=== PATIENT | male | born 1960 | race Caucasian/White ===

== ENCOUNTER 2017-07-03 20:48 | Inpatient (IN) | payer OTHER ==
[~2017-07-03] VITALS: Ht 170.2 cm; Wt 83.7 kg
[2017-07-03 21:12] VITALS: BP 183/89; PULSE 61; RESP 18; TEMP 97.9; O2SAT 99
[2017-07-03 21:24] VITALS: BP 180/88; PULSE 64; RESP 18; O2SAT 100
[2017-07-03 21:25] VITALS: BP 166/80; PULSE 64; RESP 18; O2SAT 100
[2017-07-03 21:41] VITALS: BP_SYST 166; BP_SYST 180; BP_DIAS 64; BP_DIAS 88; PULSE 66; RESP 18; O2SAT 100
--- NOTE | 2017-07-03 21:44 | PD ---
HPI Chief Complaint: Chest Pain Time Seen by Provider: 21:23 Travel History International Travel<30 days: No Contact w/Intl Traveler<30days: No Traveled to known affect area: No History of Present Illness HPI Patient presents to the emergency department complaining of chest pain started approximately 1 hour ago. Denies chest pain now. Similar pain approximately 1 month ago. He saw his doctor today and was told that he needed follow-up with dealer sales rep and to come to the ER if pain recurs., The doctor visit he had no chest pain however he was walking his dog the pain recurred and he came to the emergency department. Pain is alleviated with rest, aggravated by movement, diffuse, burning sensation, 30 minutes in duration, nonradiating. He did not take any medication for the pain. He denies fever, vomiting, lower extremity edema, recent travel reports chills, nausea, shortness of breath or chest pain PFSH Past Medical History Arthritis: Yes Asthma: Yes High Cholesterol: Yes Diminished Hearing: No Hypertension: Yes (TAKEN OFF MEDS) Immunizations Current: Yes Past Surgical History Other Surgery: Yes Social History Alcohol Use: Yes Tobacco Use: No Substance Use: No Allergies-Medications (Allergen,Severity, Reaction): Coded Allergies: peanut (Verified Allergy, Severe, 07/03/17) Reported Meds & Prescriptions Reported Meds & Active Scripts Active Reported Atorvastatin (Atorvastatin Calcium) 20 Mg Tab 20 Mg PO HS Aspirin 81 Mg Chew 81 Mg CHEW DAILY Humira 2-Pack Inj (Adalimumab 2-Pack Inj) 10 Mg/0.2 Ml Syr 10 Mg SQ Q14D Review of Systems Except as stated in HPI: all other systems reviewed are Neg Physical Exam Narrative GENERAL: No acute distress. SKIN: Focused skin assessment warm/dry. HEAD: Atraumatic. Normocephalic. EYES: Ocular muscles intact bilaterally. No scleral icterus. No injection or drainage. ENT: No nasal bleeding or discharge. Mucous membranes pink and moist. NECK: Trachea midline. No JVD. CARDIOVASCULAR: Regular rate and rhythm. No murmur appreciated. RESPIRATORY: No accessory muscle use. Clear to auscultation. Breath sounds equal bilaterally. GASTROINTESTINAL: Abdomen soft, non-tender, nondistended. MUSCULOSKELETAL: No obvious deformities. No clubbing. No cyanosis. No edema. NEUROLOGICAL: Awake and alert. No obvious cranial nerve deficits. Motor grossly within normal limits. Normal speech. PSYCHIATRIC: Appropriate mood and affect; insight and judgment normal. Data Data Last Documented VS Vital Signs Date Time Temp Pulse Resp B/P (MAP) Pulse Ox O2 Delivery O2 Flow Rate FiO2 07/03/17 21:47 99 Room Air 07/03/17 21:41 66 18 07/03/17 21:12 97.9 Orders Orders Electrocardiogram (07/03/17 21:33) B-Type Natriuretic Peptide (07/03/17 21:33) Ckmb (Isoenzyme) Profile (07/03/17 21:33) Complete Blood Count With Diff (07/03/17 21:33) Comprehensive Metabolic Panel (07/03/17 21:33) Magnesium (Mg) (07/03/17 21:33) Prothrombin Time / Inr (Pt) (07/03/17 21:33) Act Partial Throm Time (Ptt) (07/03/17 21:33) Troponin I (07/03/17 21:33) Chest, Single Ap (07/03/17 21:33) Ecg Monitoring (07/03/17 21:33) Bilateral Bp Monitoring (07/03/17 21:33) Iv Access Insert/Monitor (07/03/17 21:33) Oximetry (07/03/17 21:33) Aspirin (Aspirin) (07/03/17 21:45) Sodium Chloride 0.9% Flush (Ns Flush) (07/03/17 21:45) Consult Cardiology (07/03/17 ) (Hub Use Only)Inp Phy Cons/Ref (07/03/17 ) CKMB (07/03/17 21:35) CKMB% (07/03/17 21:35) Carvedilol (Coreg) (07/03/17 22:45) Enoxaparin Inj (Lovenox Inj) (07/03/17 22:45) Admit Order (Ed Use Only) (07/03/17 22:39) Labs Laboratory Tests Test 07/03/17 21:35 White Blood Count 8.6 TH/MM3 Red Blood Count 4.33 MIL/MM3 Hemoglobin 13.6 GM/DL Hematocrit 38.7 % Mean Corpuscular Volume 89.5 FL Mean Corpuscular Hemoglobin 31.4 PG Mean Corpuscular Hemoglobin Concent 35.1 % Red Cell Distribution Width 14.0 % Platelet Count 300 TH/MM3 Mean Platelet Volume 8.2 FL Neutrophils (%) (Auto) 48.4 % Lymphocytes (%) (Auto) 36.8 % Monocytes (%) (Auto) 9.3 % Eosinophils (%) (Auto) 4.2 % Basophils (%) (Auto) 1.3 % Neutrophils # (Auto) 4.2 TH/MM3 Lymphocytes # (Auto) 3.2 TH/MM3 Monocytes # (Auto) 0.8 TH/MM3 Eosinophils # (Auto) 0.4 TH/MM3 Basophils # (Auto) 0.1 TH/MM3 CBC Comment DIFF FINAL Differential Comment Prothrombin Time 9.7 SEC Prothromb Time International Ratio 1.0 RATIO Activated Partial Thromboplast Time 26.3 SEC Blood Urea Nitrogen 22 MG/DL Creatinine 1.34 MG/DL Random Glucose 97 MG/DL Total Protein 7.4 GM/DL Albumin 3.7 GM/DL Calcium Level 9.3 MG/DL Magnesium Level 1.9 MG/DL Alkaline Phosphatase 69 U/L Aspartate Amino Transf (AST/SGOT) 26 U/L Alanine Aminotransferase (ALT/SGPT) 37 U/L Total Bilirubin 0.3 MG/DL Sodium Level 138 MEQ/L Potassium Level 3.7 MEQ/L Chloride Level 106 MEQ/L Carbon Dioxide Level 23.9 MEQ/L Anion Gap 8 MEQ/L Estimat Glomerular Filtration Rate 55 ML/MIN Total Creatine Kinase 184 U/L Creatine Kinase MB 1.5 NG/ML Troponin I 0.63 NG/ML B-Type Natriuretic Peptide 37 PG/ML MDM Medical Decision Making Medical Screen Exam Complete: Yes Emergency Medical Condition: Yes Interpretation(s) EKG: Sinus bradycardia at 58, normal intervals, normal axis, T-wave inversion in lead aVL/V1/V2 also has slight ST elevation in inferior leads with T-wave amplitude approaching QRS amplitude. Labs: Troponin elevated, creatinine slightly increased Last Impressions Chest X-Ray 07/03/17 8650 Signed Impressions: Service Date/Time: Monday, July 03, 2017 21:46 - CONCLUSION: No acute disease. Kulwant Silvestre MD Differential Diagnosis ACS, STEMI, PE, musculoskeletal chest pain, aortic dissection, costochondritis Narrative Course Patient presents to the emergency department with chest pain that is worse with movement and alleviated with rest. He is afebrile, slightly hypertensive at 166 /80, remained vital signs stable. No focal physical exam findings. Will get chest pain rule out labs given aspirin 325 mg p.o. Patient has some slight ST elevation in inferior leads and T-wave inversion in aVL, will recheck out to the on-call dealer sales rep to discuss EKG. Physician Communication Physician Communication [id number]: Discussed case with Dr Braun, Cards cotton ball bagger.ECG sent to him. Advised to admit patient, place consult to him, lovenox if no contraindications/NTG/B hilaria, admit to hospitalist and NPO after MN. 2241: Admitted to hospitalist.Advised to hold NTG as patient is cp free. She will write for it on admission orders if needed. Wanted me to give coreg 3.125mg for the beta hilaria. Also advised ok to give lovenox with slight bump in creatinine. Diagnosis Primary Impression: NSTEMI (non-ST elevated myocardial infarction) Admitting Information Admitting Physician Requests: Admit Condition: Stable Sherry Borden MD July 03, 2017 21:44
[2017-07-03] MEDS ORDERED: SODIUM CHLORIDE 0.9% FLUSH 10 ML FLUSH IVF PRN (21:45)
[2017-07-03] MEDS ORDERED: ASPIRIN 325 MG TAB PO ONE (21:45)
[2017-07-03] MEDS ORDERED: ASPI-516 CHEW (21:45)
[2017-07-03] MEDS ORDERED: ADAL1INJ SQ (21:45)
[2017-07-03 21:47] VITALS: O2SAT 99
[2017-07-03] MEDS ORDERED: ATOR10TA15 PO (21:47)
[2017-07-03] MEDS ORDERED: ATOR20TA15 PO (21:48)
[2017-07-03 21:56] LABS: AUTOMATED NEUTROPHIL # 4.2 TH/MM3 (1.8-7.7); BASOPHIL # 0.1 TH/MM3 (0-0.2); BASOPHIL % 1.3 % (0.0-2.0); EOSINOPHIL # 0.4 TH/MM3 (0-0.4); EOSINOPHIL % 4.2 % (0.0-4.0); HEMATOCRIT 38.7 % (39.0-51.0); HEMOGLOBIN 13.6 GM/DL (13.0-17.0); LYMPH % 36.8 % (9.0-44.0); LYMPHOCYTE # 3.2 TH/MM3 (1.0-4.8); MEAN CELL VOLUME 89.5 FL (80.0-100.0); MEAN CORPUSCULAR HEMOGLOBIN 31.4 PG (27.0-34.0); MEAN CORPUSCULAR HGB CONC 35.1 % (32.0-36.0); MEAN PLATELET VOLUME 8.2 FL (7.0-11.0); MONO % 9.3 % (0.0-8.0); MONOCYTE # 0.8 TH/MM3 (0-0.9); NEUT % 48.4 % (16.0-70.0); PLATELET COUNT 300 TH/MM3 (150-450); RED BLOOD COUNT 4.33 MIL/MM3 (4.50-5.90); WHITE BLOOD COUNT 8.6 TH/MM3 (4.0-11.0)
[2017-07-03 22:06] LABS: PROTHROMBIN TIME - PATIENT 9.7 SEC (9.8-11.6)
--- NOTE | 2017-07-03 22:12 | RADRPT ---
EXAM DATE/TIME: 07/03/2017 21:46 [facility] COMPARISON: No previous studies available for comparison. INDICATIONS : Chest pain and shortness of breath. MEDICAL HISTORY : Hypercholesterolemia. Hypertension Chronic obstructive pulmonary disease. Asthma, Arthritis. SURGICAL HISTORY : Right arm surgery. ENCOUNTER: Initial ACUITY: 1 day PAIN SCORE: 10/10 LOCATION: Bilateral chest FINDINGS: A single view of the chest demonstrates the lungs to be symmetrically aerated without evidence of mas s, infiltrate or effusion. The cardiomediastinal contours are unremarkable. Osseous structures are intact. CONCLUSION: No acute disease. Kulwant Silvestre MD on July 03, 2017 at 22:10 Board Certified Radiologist. This report was verified electronically.
[2017-07-03 22:16] LABS: ALBUMIN 3.7 GM/DL (3.4-5.0); AST (GOT) 26 U/L (15-37); BICARBONATE 23.9 MEQ/L (21.0-32.0); BLOOD UREA NITROGEN 22 MG/DL (7-18); CALCIUM 9.3 MG/DL (8.5-10.1); CHLORIDE 106 MEQ/L (98-107); CREATININE 1.34 MG/DL (0.60-1.30); GLOMERULAR FILTRATION RATE 55 ML/MIN (>89); GLUCOSE,RANDOM 97 MG/DL (74-106); MAGNESIUM 1.9 MG/DL (1.5-2.5); SODIUM (NA) 138 MEQ/L (136-145)
[2017-07-03 22:21] LABS: ALKALINE PHOSPHATASE 69 U/L (45-117); ALT (GPT) 37 U/L (12-78); TOTAL BILIRUBIN ADULT 0.3 MG/DL (0.2-1.0); TOTAL PROTEIN 7.4 GM/DL (6.4-8.2)
[2017-07-03 22:29] LABS: TROPONIN I 0.63 NG/ML (0.02-0.05)
[2017-07-03] MEDS ORDERED: CARVEDILOL 3.125 MG TAB PO ONE (22:45)
[2017-07-03] MEDS ORDERED: ENOXAPARIN SODIUM 100 MG/ML SYRINGE SQ ONE (22:45)
[2017-07-03] MEDS ORDERED: SODIUM CHLORIDE 0.9% FLUSH 10 ML FLUSH IV FLUSH PRN (23:45)
[2017-07-04] VITALS (16 sets, daily range): BP systolic 114–189; BP diastolic 56–84; PULSE 48–67; RESP 16; TEMP 97.8–98.2; O2SAT 96–99
[2017-07-04] MEDS ORDERED: MORPHINE SULFATE 4 MG/ML INJ IV PUSH PRN
[2017-07-04] MEDS ORDERED: ATORVASTATIN 20 MG TAB PO SCH
--- NOTE | 2017-07-04 00:11 | HHI.HP ---
[facility] Rinku Mcconnell MD Admission Diagnosis ACS/NSTEMI Diagnoses: Travel History International Travel<30 Days: No Contact w/Intl Traveler <30 Da: No Traveled to Known Affected Are: No History of Present Illness 56-year-old male with a past medical history significant for hyperlipidemia and psoriatic arthritis presents to the emergency department for evaluation of chest pain/pressure. The patient reports that starting at 8 PM last night he had a chest tightness/pressure with accompanying shortness of breath that lasted approximately 45 minutes. He endorses nausea without emesis. He states the pain was relieved on its own on his arrival to the emergency department. He denies any abdominal pain or diarrhea. No fevers/chills. No fatigue or weakness. No lateralizing signs/symptoms. Review of Systems Except as stated in HPI: all other systems reviewed are Neg Past Family Social History Past Medical History Hyperlipidemia Psoriatic arthritis Past Surgical History Discectomy Reported Medications Reported Meds & Active Scripts Active Reported Atorvastatin (Atorvastatin Calcium) 20 Mg Tab 20 Mg PO HS Aspirin 81 Mg Chew 81 Mg CHEW DAILY Humira 2-Pack Inj (Adalimumab 2-Pack Inj) 10 Mg/0.2 Ml Syr 10 Mg SQ Q14D Allergies: Coded Allergies: peanut (Verified Allergy, Severe, 07/03/17) Family History Father with CAD Social History Quit smoking 4 years ago. Rare alcohol. Denies illicit drugs. Physical Exam Vital Signs Vital Signs Date Time Temp Pulse Resp B/P (MAP) Pulse Ox O2 Delivery O2 Flow Rate FiO2 07/03/17 21:47 99 Room Air 07/03/17 21:41 66 18 180/88 (118) 100 Room Air 07/03/17 21:41 66 18 166/64 (98) 100 Room Air 07/03/17 21:25 64 18 166/80 (108) 100 Room Air 07/03/17 21:24 64 18 180/88 (118) 100 Room Air 07/03/17 21:12 97.9 61 18 183/89 (120) 99 Physical Exam GENERAL: male sitting up in bed SKIN: No rashes, ecchymoses or lesions. Cool and dry. HEAD: Atraumatic. Normocephalic. No temporal or scalp tenderness. EYES: Pupils equal round and reactive. Extraocular motions intact. No scleral icterus. No injection or drainage. ENT: Nose without bleeding, purulent drainage or septal hematoma. Throat without erythema, tonsillar hypertrophy or exudate. Uvula midline. Airway patent. NECK: Trachea midline. No JVD or lymphadenopathy. Supple, nontender, no meningeal signs. CARDIOVASCULAR: Regular rate and rhythm without murmurs, gallops, or rubs. RESPIRATORY: Clear to auscultation. Breath sounds equal bilaterally. No wheezes , rales, or rhonchi. GASTROINTESTINAL: Abdomen soft, non-tender, nondistended. No hepato-splenomegaly , or palpable masses. No guarding. MUSCULOSKELETAL: Extremities without clubbing, cyanosis, or edema. No joint tenderness, effusion, or edema noted. No calf tenderness. NEUROLOGICAL: Awake and alert. Cranial nerves II through XII intact. Motor and sensory grossly within normal limits. Normal speech. Laboratory Laboratory Tests Test 07/03/17 21:35 White Blood Count 8.6 Red Blood Count 4.33 Hemoglobin 13.6 Hematocrit 38.7 Mean Corpuscular Volume 89.5 Mean Corpuscular Hemoglobin 31.4 Mean Corpuscular Hemoglobin Concent 35.1 Red Cell Distribution Width 14.0 Platelet Count 300 Mean Platelet Volume 8.2 Neutrophils (%) (Auto) 48.4 Lymphocytes (%) (Auto) 36.8 Monocytes (%) (Auto) 9.3 Eosinophils (%) (Auto) 4.2 Basophils (%) (Auto) 1.3 Neutrophils # (Auto) 4.2 Lymphocytes # (Auto) 3.2 Monocytes # (Auto) 0.8 Eosinophils # (Auto) 0.4 Basophils # (Auto) 0.1 CBC Comment DIFF FINAL Differential Comment Prothrombin Time 9.7 Prothromb Time International Ratio 1.0 Activated Partial Thromboplast Time 26.3 Blood Urea Nitrogen 22 Creatinine 1.34 Random Glucose 97 Total Protein 7.4 Albumin 3.7 Calcium Level 9.3 Magnesium Level 1.9 Alkaline Phosphatase 69 Aspartate Amino Transf (AST/SGOT) 26 Alanine Aminotransferase (ALT/SGPT) 37 Total Bilirubin 0.3 Sodium Level 138 Potassium Level 3.7 Chloride Level 106 Carbon Dioxide Level 23.9 Anion Gap 8 Estimat Glomerular Filtration Rate 55 Total Creatine Kinase 184 Creatine Kinase MB 1.5 Troponin I 0.63 B-Type Natriuretic Peptide 37 Result Diagram: 07/03/17213407/03/172134 Caprini VTE Risk Assessment Caprini VTE Risk Assessment: No/Low Risk (score <= 1) Caprini Risk Assessment Model Point Value = 1 Point Value = 2 Point Value = 3 Point Value = 5 Age 41-60 Minor surgery BMI > 25 kg/m2 Swollen legs Varicose veins or History of unexplained or recurrent spontaneous Oral contraceptives or hormone replacement Sepsis (< 1 month) Serious lung disease, including pneumonia (< 1 month) Abnormal pulmonary function Acute myocardial infarction Congestive heart failure (< 1 month) History of inflammatory bowel disease Medical patient at bed rest Age 61-74 Arthroscopic surgery Major open surgery (> 45 min) Laparoscopic surgery (> 45 min) Malignancy Confined to bed (> 72 hours) Immobilizing plaster cast Central venous access Age >= 75 History of VTE Family history of VTE Factor V Leiden Prothrombin [id number] Lupus anticoagulant Anticardiolipin antibodies Elevated serum homocysteine Heparin-induced thrombocytopenia Other congenital or acquired thrombophilia Stroke (< 1 month) Elective arthroplasty Hip, pelvis, or leg fracture Acute spinal cord injury (< 1 month) Prophylaxis Regimen Total Risk Factor Score Risk Level Prophylaxis Regimen 0-1 Low Early ambulation 2 Moderate Order ONE of the following: *Sequential Compression Device (SCD) *Heparin 5000 units SQ BID 3-4 Higher Order ONE of the following medications: *Heparin 5000 units SQ TID *Enoxaparin/Lovenox 40 mg SQ daily (WT < 150 kg, CrCl > 30 mL/min) *Enoxaparin/Lovenox 30 mg SQ daily (WT < 150 kg, CrCl > 10-29 mL/min) *Enoxaparin/Lovenox 30 mg SQ BID (WT < 150 kg, CrCl > 30 mL/min) AND/OR *Sequential Compression Device (SCD) 5 or more Highest Order ONE of the following medications: *Heparin 5000 units SQ TID (Preferred with Epidurals) *Enoxaparin/Lovenox 40 mg SQ daily (WT < 150 kg, CrCl > 30 mL/min) *Enoxaparin/Lovenox 30 mg SQ daily (WT < 150 kg, CrCl > 10-29 mL/min) *Enoxaparin/Lovenox 30 mg SQ BID (WT < 150 kg, CrCl > 30 mL/min) AND *Sequential Compression Device (SCD) Assessment and Plan Assessment and Plan Assessment/plan: 1. NSTEMI Initial troponin 0 0.63 EKG showed sinus bradycardia with T-wave inversion and possible ST elevation in the inferior leads, personally reviewed Cardiology consulted, appreciate recommendations ACS rule out pending; serial troponins/EKGs Therapeutic Lovenox per cardiology Coreg Aspirin 2. Hyperlipidemia Continue home statin 3. Psoriatic arthritis On Humira 4. HPI Creatinine 1.34, baseline unknown IV fluid hydration Monitor renal function FEN N.p.o. NS at 100 cc/hour Electrolytes: Replete as needed Lovenox Physician Certification 2 Midnight Certification Type: Admission for Inpatient Services Order for Inpatient Services The services are ordered in accordance with Medicare regulations or non- Medicare payer requirements, as applicable. In the case of services not specified as inpatient-only, they are appropriately provided as inpatient services in accordance with the 2-midnight benchmark. Estimated LOS (days): 2 2 days is the estimated time the patient will need to remain in the hospital, assuming treatment plan goals are met and no additional complications. Post-Hospital Plan: Not yet determined Raegan Kern MD July 04, 2017 00:11
[2017-07-04] MEDS ORDERED: SODIUM CHLOR 0.9% 1000 ML INJ 1,000 ML IV SCH (00:15)
[2017-07-04 04:06] LABS: AUTOMATED NEUTROPHIL # 4.7 TH/MM3 (1.8-7.7); BASOPHIL # 0.1 TH/MM3 (0-0.2); BASOPHIL % 0.8 % (0.0-2.0); EOSINOPHIL # 0.3 TH/MM3 (0-0.4); EOSINOPHIL % 3.3 % (0.0-4.0); HEMATOCRIT 37.2 % (39.0-51.0); LYMPH % 30.1 % (9.0-44.0); LYMPHOCYTE # 2.4 TH/MM3 (1.0-4.8); MEAN CELL VOLUME 89.3 FL (80.0-100.0); MEAN CORPUSCULAR HEMOGLOBIN 31.1 PG (27.0-34.0); MEAN CORPUSCULAR HGB CONC 34.9 % (32.0-36.0); MEAN PLATELET VOLUME 8.3 FL (7.0-11.0); MONO % 6.5 % (0.0-8.0); MONOCYTE # 0.5 TH/MM3 (0-0.9); NEUT % 59.3 % (16.0-70.0); PLATELET COUNT 298 TH/MM3 (150-450); RED BLOOD COUNT 4.16 MIL/MM3 (4.50-5.90); RED CELL DISTRIBUTION WIDTH 14.1 % (11.6-17.2)
[2017-07-04 04:24] LABS: BICARBONATE 24.8 MEQ/L (21.0-32.0); CALCIUM 9.1 MG/DL (8.5-10.1); CREATININE 1.11 MG/DL (0.60-1.30)
[2017-07-04 04:27] LABS: CHOLESTEROL/ HDL RATIO 3.82 RATIO
[2017-07-04 06:23] LABS: TROPONIN I 0.59 NG/ML (0.02-0.05)
[2017-07-04] MEDS: CARVEDILOL 3.125 MG TAB PO SCH ×2 (08:51→21:32)
[2017-07-04] MEDS ORDERED: MIDAZOLAM HCL 2 MG/2 ML VIAL ONE ×2 (08:52→09:15)
[2017-07-04] MEDS: SODIUM CHLORIDE 0.9% FLUSH 10 ML FLUSH IV FLUSH SCH ×3 (08:52→21:33)
[2017-07-04] MEDS ORDERED: HEPARIN-NS/PF FLUSH BAG 2,000 ML IV FLUSH ONE (08:52)
[2017-07-04] MEDS ORDERED: ASPIRIN 325 MG TAB PO SCH (09:00)
--- NOTE | 2017-07-04 09:14 | MB ---
cc: Dung Braun MD DATE: 07/04/2017 HISTORY: Pino is a very pleasant 56-year-old gentleman who has been having chest pain for about three weeks now. First noticed it while riding the elliptical at the gym. He then went to his primary care doctor and complained of the chest pain. He was referred to a chin strap sewer, but did not go to the appointment yet. He saw his primary doctor yesterday. He was having resting chest pain. He was referred to the emergency room for further evaluation and management and found to have elevated troponin. Chest pain was controlled with aspirin, Lovenox, nitro, and beta hilaria. He is currently resting comfortably in no acute distress. Denies any fever, chills, cough, GI/ bleeding, pain, orthopnea, syncope or dizziness. PAST MEDICAL HISTORY: As per history of present illness. PAST MEDICAL HISTORY: Includes asthma, arthritis, hyperlipidemia, and hypertension. SOCIAL HISTORY: Drinks alcohol, denies tobacco use. ALLERGIES: PEANUTS. MEDICATIONS PRIOR TO ADMISSION: 1. Atorvastatin 20 mg at bedtime. 2. Aspirin 81 mg a day. 3. Humira 2 pack. MEDICATIONS IN THE HOSPITAL: 1. Lovenox 90 mg sub-Q q. 12 h. 2. Coreg 3.125 q. 12 h. hours. 3. Aspirin 325 daily. 4. Atorvastatin 20 mg at bedtime. PHYSICAL EXAMINATION: VITAL SIGNS: Blood pressure 142/67, pulse 55, respiratory rate 16, temperature 97.9, sats 100% on room air. GENERAL: He is alert and oriented x 3, in no acute distress. NECK: Supple. No JVD. No bruit. HEART: S1, S2. No murmurs, rubs, or gallops. LUNGS: Clear to auscultation bilaterally. ABDOMEN: Soft, nontender, nondistended with positive bowel sounds. EXTREMITIES: Lower extremity edema. LABORATORY DATA: White count 8.0, hemoglobin 13.0, hematocrit 37.2, platelet count 298. INR 1.0. Sodium 141, potassium 3.9, chloride 109, bicarbonate 24.8, BUN 19, creatinine 1.11. Troponin is 0.63, followed by 0.59. The LDL was 103, HDL is 45, AST 26, ALT 37. INR is 1.0. Chest x-ray, no acute disease. EKG shows sinus bradycardia at 58 beats per minute, T-wave inversion, slightly asymmetric in V1, V2. A repeat EKG shows sinus bradycardia at 51 beats per minute, asymmetric T-wave inversion in V1 and V2, approximately 0.5 mm of depth. He has the following diagnoses: 1. Non-ST elevation myocardial infarction. 2. Sinus bradycardia. 3. Acute renal failure. DISCUSSION: A left heart catheterization is urgently indicated due to non-STEMI. I have explained to the patient the risks and benefits of catheterization and PCI has a 5-10% chance of , stroke, heart attack, bleeding, infection, need for bypass surgery, dialysis blood transfusion, anaphylaxis and arrhythmia, bleeding, and infection. The patient understands and consents to proceed with the procedure. Continue aspirin, Coreg, Lipitor and Lovenox. MD JOHANNY Hassan/CHRISTINA , 08:49 AM , 09:13 AM
[2017-07-04] MEDS ORDERED: TIROFIBAN INFUSION INJ 250 ML IV ONE (09:46)
[2017-07-04] MEDS ORDERED: PRASUGREL 10 MG TAB ONE (09:46)
--- NOTE | 2017-07-04 10:10 | CATHPROC ---
Ansira HIS Report Study Information Study Number Admission Scheduled Start Study Start [id number] Jul 03 2017 10:41PM 07/04/2017 Jul 04 2017 8:24AM [facility] Cardiac Catheterization Admit Source Facility Department Emergency department [facility] [address] - Nurse Auditor Physician and Clinical Staff Initial Dung Robles Corporate Travel Coordinator Mason Gonzalez,MILY Corporate Travel Coordinator Joelle Mendoza,MILY Recorder Vargas Marquez,RT(R) Jailene Jaffe,RT(R) (BS) Procedures Performed Procedure Location (Site) Vessel Name Coronary Angiograms LCA Left Coronary Coronary Angiograms RCA Right Coronary LV Gram-hand inj. LV LV Ventricle PTCA DIAG1 Prox Left Coronary PTCA ADD ON'S Stent LAD Mid Left Coronary Wire insertion Fem Art (right) Femoral Art Equipment Time [place] Roofer Description Size Mfg Part Number Used/Scraped [id number] 09:18 [employer] WIRE, ASAHI PROWATER 180CM 180CM Used *[id number] 09:18 [employer] WIRE, ASAHI PROWATER 180CM 180CM Used *[id number] 09:24 [employer] WIRE, ASAHI PROWATER 180CM 180CM Used *[id number] 09:40 [employer] WIRE, ASAHI PROWATER 180CM 180CM Used *[id number] TRANSDUCER, TRUWAVE [id number] 09:02 [employer] * Used W/STOCKCOCK *[id number] [id number] *[id number] [id number] *[phone] *[id number] 09:02 MEDLINE [employer] PACK, CCL CUSTOM * Used *[id number] 09:02 [employer] PACER PEN, SKIN DUAL W/ RULER * Used *[id number] 09:27 MEDTRONIC BALLOON, 2.5 X 6MM EUPHORA 6MM Used *[id number] 09:41 MED[employer] STENT, 3.0 12 INTEGRITY 3.0 12 Used *[id number] 09:32 [employer] STENT, 3.5 9 INTEGRITY 3.5 9 Used *[id number] 09:15 [employer]i MEDICAL 30 LIEN INDEFLATOR Used *[id number] 09:15 Nexi MEDICAL SHEATH, FR6.5 PRELUDE 11CM FR 6.5 038ACT Used *[id number] 09:02 [employer] MEDICAL WIRE, 3MMJ .035 180CM 180CM Used *[id number] 09:02 NAMIC MANIFOLD, 4 PORT * Used *[id number] 09:02 NYCOMED OMNIPAQUE, 350 MG, 150ML 150ML [id number] Used [id number] 09:02 [employer]UNSON [employer] BLANKET,WARM AIR CCL * Used *[id number] 09:02 TERUMO MEDICAL SHEATH, FR4 TERUMO (10CM) FR 4 Used *[id number] Equipment Model, Serial, Lot Number and Expiration Data Description Model Number Serial Number Lot Number Expiration Date STENT, 3.0 12 INTEGRITY [id number] 11-23-2018 STENT, 3.5 9 INTEGRITY [id number] 10-31-2017 History: Allergies Allergy Reaction peanut History: Risk Factors Family History of Hypertension Dyslipidemia Previous [place] Previous Heart Failure Premature CAD No Yes No No No Prior Valve Prior PCI Prior CABG Surgery No No No Cerebrovascular Peripheral Artery Chronic Lung On Dialysis Diabetes Disease Disease Disease No No No No No History: Stress Tests Stress or Imaging Studies Performed No History: Other Current Smoker Method Quit No Cigarettes 4 Years Ago Labs Hgb (g/dl) Hct (%) RBC (MIL/MM3) WBC (l/cumm) Platelets (thousands) 11.60-17.00 35.00-51.00 4.00-5.90 4.00-11.00 150.00-450.00 13.0 37.2 4.1 8 298 Glucose (mg/dl) BUN (mg/dl) Creatinine (mg/dl) BUN:Creatinine (1:x) 74.00-106.00 7.00-18.00 0.50-1.30 10.00-20.00 93 19 1.1 17.3 Na (meq/l) K (meq/l) Cl (meq/l) 136.00-145.00 3.50-5.10 98.00-107.00 141 3.9 109 PT (sec) INR (PTT:PT) 9.80-11.60 0.90-1.10 9.7 1 Troponin I (ng/ml) CPK-MB (ng/ML) 0.02-0.05 0.50-3.60 0.59 Not Drawn Medication Medication Total Dose (Bolus/Oral) Medication Total Dosage/Unit 1% XYLOCAINE 10 mL AGGRASTAT BOLUS 0.5 meq/kg EFFIENT 60 mg FENTANYL 37.5 mcg HEPARIN 7400 units VERSED 3 mg Medications (Bolus/Oral) Medication Time Given Dosage/Unit Administered By Reason VERSED 07/04/2017 8:58:08 AM 2 mg Carlos, Mason 2 mg VERSED given in lab by Mason Gonzalez RN via Peripheral IV. Ordered by Dung Braun. FENTANYL 07/04/2017 8:59:21 AM 12.5 mcg Carlos, Mason 12.5 mcg FENTANYL given in lab by Mason Gonzalez RN via Peripheral IV. Ordered by Dung Braun. 1% XYLOCAINE 07/04/2017 9:07:07 AM 10 mL Dung Braun 10 mL 1% XYLOCAINE given in lab by Dung Braun in Right Groin via Subcutaneous. Ordered by Dung Concepcion. HEPARIN 07/04/2017 9:16:35 AM 5900 units Carlos, Mason 5900 units HEPARIN given in lab by Mason Gonzalez RN via Peripheral IV. Ordered by Dung Braun. VERSED 07/04/2017 9:18:30 AM 1 mg Carlos, Mason 1 mg VERSED given in lab by Mason Gonzalez RN via Peripheral IV. Ordered by Dung Braun. HEPARIN 07/04/2017 9:44:58 AM 1500 units Carlos, Mason 1500 units HEPARIN given in lab by Mason Gonzalez RN via Peripheral IV. Ordered by Dung Braun. EFFIENT 07/04/2017 9:49:14 AM 60 mg Carlos, Mason 60 mg EFFIENT given in lab by Mason Gonzalez RN via Oral. Ordered by Dung Braun. AGGRASTAT BOLUS 07/04/2017 9:52:34 AM 0.5 meq/kg Carlos, Mason 0.5 meq/kg AGGRASTAT BOLUS given in lab by Mason oGnzalez RN via Peripheral IV. Amount given = 42 meq. Ordered by Dung Braun. FENTANYL 07/04/2017 10:02:12 AM 25 mcg Carlos, Mason 25 mcg FENTANYL given in lab by Mason Gonzalez RN via Peripheral IV. Ordered by Dung Braun. Medication (Drip) Medication Time Given Dosage/Unit Concentration/Unit Diluent (ml) Solution AGGRASTAT DRIP 07/04/2017 9:52:44 AM 0.15 mcg/kg/min 12.5 mg 250 NaCl .9 0.15 mcg/kg/min AGGRASTAT DRIP given in lab by Mason Gonzalez RN via Peripheral IV. Pump/Drip Flow = 1 5.12 ml/hr using NaCl .9 with a concentration of 12.5 mg in 250 ml. Ordered by Dung Braun. IV Solutions 07/04/2017 8:55:46 AM 0 mL (IV) 500 NaCl .9 Patient arrived on IV Solutions given by Dung Braun in Left Antecubital via Peripheral IV. Pump /Drip Flow = 20 ml/hr using NaCl .9. Ordered by Dung Braun. Initial Case Assessment Cardiovascular HR Rhythm NIBP Chest Pain 55 sr 150/77 0 Edema Present Skin color Skin None Normal Warm Dry Circulatory - Right Pulses Posterior Tibial Femoral 3 3 Scale (0,1,2,3,4,d) Circulatory - Left Pulses Posterior Tibial Femoral 3 3 Scale (0,1,2,3,4,d) Neurological State Oriented to time-place- Alert Moves all extremities person Respiration - General Respiration Rate SpO2 (%) O2 (lpm) (B/min) 18 100 0 Final Case Assessment Cardiovascular HR Rhythm NIBP Chest Pain 60 sr 155/82 0 Edema Present Skin color Skin None Normal Warm Dry Circulatory - Right Pulses Posterior Tibial Femoral 3 3 Scale (0,1,2,3,4,d) Circulatory - Left Pulses Posterior Tibial Femoral 3 3 Scale (0,1,2,3,4,d) Neurological State Oriented to time-place- Alert Moves all extremities person Respiration - General Respiration Rate SpO2 (%) O2 (lpm) (B/min) 18 99 0 Chronological Log Time Study Chronological Log 8:46:03 Patient arrived via Bed. 8:46:05 Patient Name, D.O.B, / Armband Verified By R.N. 8:46:06 Consent signed by the physician and the patient and verified by the Nurse Auditor staff. 8:46:07 Pre-op and post- op instructions given; patient acknowledges understanding of instructions. 8:46:48 Verbal Stimulation=2 Physical Stimulation=2 Airway=2 Respiration=2 TOTAL=8. (0=absent, 1=li mited, 2=present) 8:46:57 Presedation assessment performed by Nurse Auditor RN. 8:46:59 Patient has been NPO for More than 6Hrs. Vitals capture started with the following parameters, Patient=Adult, Interval=5 min, Initial P ifjfdma=144 mmHg, 8:53:41 Deflation Rate=5 mmHg, Cuff placed on Unknown 8:54:29 HR=57 bpm, FVCH=432/77 mmhg, SpO2=99.0 %, Resp=9 B/min, Bello=2 8:55:23 Reference ECG taken 8:55:31 A # 20 IV was noted in the Antecubital (left). Grade = 0 Patient arrived on IV Solutions given by Dung Braun in Left Antecubital via Peripheral I V. Pump/Drip Flow = 20 8:55:46 ml/hr using NaCl .9. Ordered by Dung Braun. 8:56:08 History and physical on the chart or being dictated. Assessment: Initial Case, HR=55 BPM, Rhythm=sr, IIHI=472/77 mmhg, Chest Pain=0, Edema=None, Co vickie=Normal, Skin = Warm, Dry Right Pulses: Post Tib=3, Femoral=3 8:56:10 Left Pulses: Post Tib=3, Femoral=3 Neurological: State=Alert, Ox3, WRIGHT Respiration: Resp=18 B/min, TvD9=354 %, O2=0 lpm 8:56:37 Bilateral groins prepped with 2% chlorhexidine, and draped after a 3 minute waiting time. 8:58:08 2 mg VERSED given in lab by Mason Gonzalez, MILY via Peripheral IV. Ordered by Dung Braun. 8:59:21 12.5 mcg FENTANYL given in lab by Mason Gonzalez, MILY via Peripheral IV. Ordered by Dionte Braun rthutom. 8:59:30 HR=63 bpm, BGYT=235/70 mmhg, SpO2=94.0 %, Resp=14 B/min, Bello=2 9:01:12 Pressure channel 1 zeroed. 9:04:25 HR=58 bpm, AANJ=690/73 mmhg, SpO2=94.0 %, Resp=15 B/min, Bello=2 Time Out. Correct patient, correct procedure, correct physician, power injector not loaded with contrast with surgical 9:04:35 team present. Time Out Concurred by MD and individual staff in procedure. Not loaded at this dorothea e. 9::57 Presedation re-assessment performed by Nurse Auditor RN. 9::58 Case Start 9:07:01 Verbal Stimulation=2 Physical Stimulation=2 Airway=2 Respiration=2 TOTAL=8. (0=absent, 1=gunter ited, 2=present) 10 mL 1% XYLOCAINE given in lab by Dung Braun in Right Groin via Subcutaneous. Ordered by Aparna, 9:07:07 Dung. 9:07:25 Access site was Right Femoral Artery. 9:07:34 A SHEATH, FR4 TERUMO (10CM) FR 4 was advanced into the Fem Art (right) using the Percutaneou s technique. A JR 4.0 INFINITI CATHETER FR 4 was advanced over a wire. OMNIPAQUE, 350 MG, 150ML 150ML was use d for 9:07:42 injections. Recorded Pressure: LV, HR=58, Condition=Condition 1 9:08:01 (Left Ventricle) LV 127/-1/7 9:08:09 The LV was manually injected with 10 cc's and visualized. OMNIPAQUE, 350 MG, 150ML 150ML use d. Recorded Pressure: LV, Ao, HR=58, Condition=Condition 1 9:08:18 (Left Ventricle) LV ?/?/?, (Aorta) Ao 118/65/87 9:08:46 The RCA was injected and visualized at various angles. OMNIPAQUE, 350 MG, 150ML 150ML used. Recorded Pressure: Ao, HR=63, Condition=Condition 1 9:08:54 (Aorta) Ao 126/71/93 9:09:24 HR=61 bpm, QDKU=220/75 mmhg, SpO2=96.0 %, Resp=14 B/min, Bello=2 9:09:37 Catheter was removed A JL 4.0 INFINITI CATHETER FR 4 was advanced over a wire. OMNIPAQUE, 350 MG, 150ML 150ML was use d for 9::57 injections. 9::57 The LCA was injected and visualized at various angles. OMNIPAQUE, 350 MG, 150ML 150ML used. 9:11:53 Catheter was removed A SHEATH, FR6.5 PRELUDE 11CM FR 6.5 was exchanged in the Fem Art (right). This was necessary in order to 9:14:07 accomodate a larger catheter. 9:14:21 HR=60 bpm, WMVU=113/73 mmhg, SpO2=96.0 %, Resp=21 B/min, Bello=2 9:15:05 contrast and 30 LIEN INDEFLATOR added. 9:16:35 5900 units HEPARIN given in lab by Mason Gonzalez RN via Peripheral IV. Ordered by Dung Braun. A XB 3.5 GUIDE CATHETER FR 6 was advanced over a wire. OMNIPAQUE, 350 MG, 150ML 150ML was used f or 9:17:25 injections. 9:18:30 1 mg VERSED given in lab by Mason Gonzalez RN via Peripheral IV. Ordered by Dung Braun. 9:18:46 A WIRE, ASAHI PROWATER 180CM 180CM was inserted via Fem Art (right). 9:19:22 HR=58 bpm, WEFN=860/79 mmhg, SpO2=96.0 %, Resp=14 B/min, Bello=2 9:19:47 Interventional wire has crossed the lesion 9:20:53 A WIRE, ASAHI PROWATER 180CM 180CM was inserted via Fem Art (right). 9:23:51 2nd Wire removed 9:24:18 A WIRE, ASAHI PROWATER 180CM 180CM was inserted via Fem Art (right). 9:24:25 HR=60 bpm, ABUK=354/68 mmhg, SpO2=94.0 %, Resp=25 B/min, Bello=2 9:25:39 Interventional wire has crossed the lesion DIAG 9:27:21 A BALLOON, 2.5 X 6MM EUPHORA 6MM was inserted over WIRE, ASAHI PROWATER 180CM 180CM via the DIAG1 Prox. A BALLOON, 2.5 X 6MM EUPHORA 6MM over a WIRE, ASAHI PROWATER 180CM 180CM in the DIAG1 Prox was i nflated 9:28:16 using a 30 LIEN INDEFLATOR at 7 lien for 16 sec. A BALLOON, 2.5 X 6MM EUPHORA 6MM over a WIRE, ASAHI PROWATER 180CM 180CM in the DIAG1 Prox was i nflated 9:29:04 using a 30 LIEN INDEFLATOR at 7 lien for 8 sec. A BALLOON, 2.5 X 6MM EUPHORA 6MM over a WIRE, ASAHI PROWATER 180CM 180CM in the DIAG1 Prox was i nflated 9:29:19 using a 30 LIEN INDEFLATOR at 8 lien for 8 sec. 9:29:24 HR=67 bpm, GHUW=358/86 mmhg, SpO2=96.0 %, Resp=21 B/min, Bello=2 A BALLOON, 2.5 X 6MM EUPHORA 6MM over a WIRE, ASAHI PROWATER 180CM 180CM in the DIAG1 Prox was i nflated 9:30:35 using a 30 LIEN INDEFLATOR at 8 lien for 10 sec. 9:30:50 Balloon Removed. An STENT, 3.5 9 INTEGRITY 3.5 9 Bare Metal Stent was inserted through a XB 3.5 GUIDE CATHETER FR 6 over a 9:31:48 WIRE, ASAHI PROWATER 180CM 180CM. 9:34:27 HR=59 bpm, CVYJ=504/73 mmhg, SpO2=98.0 %, Resp=10 B/min, Bello=2 An STENT, 3.5 9 INTEGRITY 3.5 9 Bare Metal Stent was inserted through a XB 3.5 GUIDE CATHETER FR 6 over a 9:34:40 WIRE, ASAHI PROWATER 180CM 180CM. 9:36:57 Delivery device removed 9:38:23 Activated Clotting Time Drawn 9:39:26 HR=59 bpm, UZBC=801/83 mmhg, SpO2=99.0 %, Resp=13 B/min, Bello=2 9:39:55 DIAG Wire removed 9:40:44 A WIRE, ASAHI PROWATER 180CM 180CM was inserted via Fem Art (right). 9:41:31 2nd Diag Interventional wire has crossed the lesion 9:42:19 ACT (Normal Range 90-180) = 229 An STENT, 3.0 12 INTEGRITY 3.0 12 Bare Metal Stent was inserted through a XB 3.5 GUIDE CATHETER FR 6 over a 9:43:18 WIRE, ASAHI PROWATER 180CM 180CM. A STENT, 3.0 12 INTEGRITY 3.0 12 was deployed using a 30 LIEN INDEFLATOR at 11 atmospheres for 25 seconds in 9:43:32 the LAD Mid. 9:44:32 HR=58 bpm, LURT=762/82 mmhg, SpO2=98.0 %, Resp=11 B/min, Bello=2 9:44:47 Delivery device removed 9:44:58 1500 units HEPARIN given in lab by Mason Gonzalez RN via Peripheral IV. Ordered by Dung Braun. 9:45:40 Wires removed Assessment: Final Case, HR=60 BPM, Rhythm=sr, IGNU=356/82 mmhg, Chest Pain=0, Edema=None, Color= Normal, Skin = Warm, Dry Right Pulses: Post Tib=3, Femoral=3 9:47:18 Left Pulses: Post Tib=3, Femoral=3 Neurological: State=Alert, Ox3, WRIGHT Respiration: Resp=18 B/min, SpO2=99 %, O2=0 lpm 9:48:23 Catheter(s) removed without difficulty 9:48:26 Sheath removed; pressure applied to access site. 9:48:29 Case End 9:48:32 Sterile dressing applied to site 9:48:50 Activated Clotting Time Drawn 9:49:14 60 mg EFFIENT given in lab by Mason Gonzalez RN via Oral. Ordered by Dung Braun. 9:49:31 HR=60 bpm, VXCX=873/85 mmhg, SpO2=99.0 %, Resp=11 B/min, Bello=2 0.5 meq/kg AGGRASTAT BOLUS given in lab by Mason Gonzalez RN via Peripheral IV. Amount given = 42 meq. Ordered 9:52:34 by Dung Braun. 0.15 mcg/kg/min AGGRASTAT DRIP given in lab by Mason Gonzalez RN via Peripheral IV. Pump/Drip F low = 15.12 ml/hr 9:52:44 using NaCl .9 with a concentration of 12.5 mg in 250 ml. Ordered by Dung Braun. 9:54:09 ACT (Normal Range 90-180) = 276 9:54:32 HR=55 bpm, NHVH=122/82 mmhg, SpO2=99.0 %, Resp=12 B/min, Bello=2 9:58:20 No case complications noted. 9:58:21 Cine recording checked. 9:58:24 Implantable Device card placed in patient's chart. 9:58:27 [facility] 25 mcg FENTANYL given in lab by Mason Gonzalez RN via Peripheral IV. Ordered by Dionte Braun. End Study - Contrast Media Used In Study Contrast Total Opened (mL) Total Used (mL) Total Wasted (mL) Omnipaque 135 135 0 End Study - Maximum Contrast Load Max Contrast Load (mL) 381.8 End Study - Radiation Exposure Fluoro Time (minutes) 15.0 End Study - Patient Disposition Complications Transferred To Telemetry Bed
[2017-07-04] MEDS ORDERED: MISC INFORMATION XX ONE (10:30)
[2017-07-04] MEDS ORDERED: SODIUM CHLORIDE 0.9% FLUSH 10 ML FLUSH IV FLUSH PRN (10:30)
[2017-07-04] MEDS ORDERED: ENOXAPARIN SODIUM 100 MG/ML SYRINGE SQ SCH (11:00)
--- NOTE | 2017-07-04 11:02 | MR ---
cc: Dung Braun MD DATE: 07/04/2017 PROCEDURE: Left heart catheterization, left ventriculography, coronary angiography, PCI with bare metal stent of the proximal LAD and PCI with bare metal stent of the mid-LAD and also PTCA of the ostial first diagonal artery. INDICATIONS FOR PROCEDURE: Non-STEMI coronary artery disease. PROCEDURE: The patient was brought to the cardiac catheterization laboratory, prepped and draped in the usual sterile fashion. 10 mL of 1% lidocaine was used to local anesthetize the right common femoral artery. A 4-Belizean sheath was placed in the right common femoral artery, 4-Belizean JR4 and JL4 catheters were used to perform left and right coronary angiography and left ventriculography. FINDINGS: The LV pressure is 120/0-1. Ejection fraction is 70%. The right coronary artery is dominant, has a proximal 60% stenosis and a sequential mid-60% stenosis. Reference vessel diameter probably at least 4 mm. The right PDA has a proximal mid 50-60% stenosis; this is a 2.5 mm reference vessel diameter. Ostial right posterolateral artery has a 20% ostial proximal stenosis. Also, the distal right coronary has a 20% stenosis. Left main coronary artery has a 20% distal stenosis. Left circumflex vessel has mild disease in the proximal segment up to 10% angiographically. The first obtuse marginal vessel is a large vessel, reference vessel diameter of at least 3 mm, with a proximal 50-60% stenosis. The LAD has an eccentric 95% stenosis in the proximal segment just proximal to a small diagonal vessel which has a reference vessel diameter of probably 2 mm, which itself has an ostial 70-80% stenosis. The mid LAD has a 90% stenosis at the bifurcation with a small to medium size second diagonal artery. This vessel has no significant obstructive disease in the ostium or proximal segment. INTERVENTION: I explained to the patient that the option would be high risk intervention, possibly involving myocardial infarction due to jailing and loss of the first or second diagonal vessel or both versus going to bypass surgery. The patient adamantly refused bypass surgery. He understood that there was 10% chance of myocardial infarction involving jailing of the first and second diagonal arteries. The patient was given 70 units per kilo of heparin with an ACT of 229, an additional 1500 units of heparin with a final ACT of 276. A 6-Belizean XB 3.5 guide and a 0.014 Prowater guidewire was placed into the distal LAD. We then placed a second 0.014 Prowater guidewire into the first diagonal artery. I used a 2.0/64 balloon, did 4 inflations of up to 8 atmospheres up to 20 seconds. Note: I did multiple inflations as this balloon persistently watermelon seeded. The stenosis went from 70% to 0% with ELEAZAR 3 flow. I then placed a 3.5/9 Integrity stent, deployed one inflation at 14 atmospheres for 20 seconds. The stenosis went from 95% to 0% with ELEAZAR 3 flow. Also note, prior to stent deployment, the stent was occlusive of the lesion. Contrast was not extravasating around the un-deployed stent. I then removed the 0.014 Prowater wire from the first diagonal artery. I had to use a new 0.014 Prowater guidewire as this first diagonal Prowater guidewire was too bent to steer it into the second diagonal artery. I used a new Prowater guidewire placed into the second diagonal artery. I then placed a 3.0/12 Integrity stent directly across the mid-LAD lesion, deployed one inflation at 12 atmospheres for 20 seconds. Stenosis went from 90% to 0% with ELEAZAR 3 flow. There was no compromise in flow into the second diagonal artery. Also note, there was no compromise in flow in the first diagonal artery. Flow was ELEAZAR 3 in the first and second diagonal arteries. Post-stenting, the patient was completely chest pain free. Note: Neither the first or second diagonal artery had compromise in the ostial segment from being jailed. CONCLUSION: 1. Rfr-RJ-[id number] myocardial infarction, culprit sequential 95% and 90% stenoses in the proximal and mid-left anterior descending as detailed. 2. 70% ostial first diagonal artery stenosis. 3. Sequential 60% stenoses in the proximal and mid-right coronary artery as detailed above. 4. 60% stenosis in the proximal first obtuse marginal vessel and proximal mid-right posterior descending artery. 5. Hyperdynamic left ventricular systolic function, ejection fraction 70%. 6. Dehydration with left ventricular end-diastolic pressure equal to 1. 7. Successful percutaneous transluminal coronary angioplasty of the first diagonal artery from 70% to 0% with ELEAZAR 3 flow. 8. Successful direct percutaneous coronary intervention of bare metal stent of the proximal left anterior descending from 95% to 0% with ELEAZAR 3 flow and ELEAZAR 3 flow into the jailed ostial first diagonal artery with no compromise in diameter of the ostium of the first diagonal artery. 9. Successful direct percutaneous coronary intervention of the mid-left anterior descending from 90% to 0% with ELEAZAR 3, with ELEAZAR 3 flow into the jailed second diagonal artery with no compromise in the ostium. 10. Hyperdynamic left ventricular systolic function, ejection fraction 70%. Low left ventricular end-diastolic pressure consistent with intravascular volume depletion. 11. Normal saline 1 liter bolus initiated in the laboratory equipment installer. 12. The patient is completely chest pain free at the end of the procedure. RECOMMENDATIONS: 1. Recommend Effient 60 mg load, then 10 mg daily for 12-15 months. 2. Aspirin 162 mg daily. 3. Continue Lipitor 20 mg at bedtime. 4. Continue Coreg 3.25 b.i.d. 5. Also start CLOVIS inhibitor. MD JOHANNY Hassan/SB , 10:00 AM , 10:36 AM
[2017-07-04] MEDS ORDERED: TIROFIBAN INFUSION INJ 250 ML IV SCH (11:45)
[2017-07-04] MEDS ORDERED: PRASUGREL 10 MG TAB PO ONE (12:00)
--- NOTE | 2017-07-04 13:59 | EKG ---
Date Performed: 07/03/2017 Time Performed: 21:28:06 PTAGE: 56 years EKG: SINUS BRADYCARDIA BORDERLINE ECG NO PREVIOUS TRACING DOCTOR: Tisha Cutler Interpretating Date/Time 07/04/2017 13:57:38
--- NOTE | 2017-07-04 14:25 | EKG ---
Date Performed: 07/04/2017 Time Performed: 03:50:21 PTAGE: 56 years EKG: SINUS BRADYCARDIA BORDERLINE ECG Since the PREVIOUS TRACING , no significant change noted PREVIOUS TRACIN07/03/2017 21.28 DOCTOR: Tisha Cutler Interpretating Date/Time 07/04/2017 14:19:57
[2017-07-04] MEDS ORDERED: IOHEXOL 350 MG/ML 50 ML BTL (for Cath Lab) OTHER ONE (15:36)
[2017-07-04] MEDS ORDERED: IOHEXOL 350 MG/ML 100 ML BTL (for Cath Lab) OTHER ONE (15:36)
[2017-07-04 18:03] LABS: TROPONIN I 0.47 NG/ML (0.02-0.05)
[2017-07-04] MEDS ORDERED: ATORVASTATIN 40 MG TAB PO SCH (21:00)
[2017-07-05] VITALS (8 sets, daily range): BP systolic 114–145; BP diastolic 70–75; PULSE 52–62; RESP 16; TEMP 98.7; O2SAT 96–97
[2017-07-05 06:08] LABS: AUTOMATED NEUTROPHIL # 5.3 TH/MM3 (1.8-7.7); BASOPHIL # 0.1 TH/MM3 (0-0.2); BASOPHIL % 0.7 % (0.0-2.0); EOSINOPHIL # 0.2 TH/MM3 (0-0.4); EOSINOPHIL % 2.6 % (0.0-4.0); HEMATOCRIT 38.2 % (39.0-51.0); LYMPHOCYTE # 2.3 TH/MM3 (1.0-4.8); MEAN CELL VOLUME 90.1 FL (80.0-100.0); MEAN CORPUSCULAR HEMOGLOBIN 30.7 PG (27.0-34.0); MEAN CORPUSCULAR HGB CONC 34.1 % (32.0-36.0); MEAN PLATELET VOLUME 8.2 FL (7.0-11.0); MONO % 7.5 % (0.0-8.0); MONOCYTE # 0.6 TH/MM3 (0-0.9); NEUT % 62.2 % (16.0-70.0); PLATELET COUNT 303 TH/MM3 (150-450); RED BLOOD COUNT 4.24 MIL/MM3 (4.50-5.90); RED CELL DISTRIBUTION WIDTH 14.3 % (11.6-17.2); WHITE BLOOD COUNT 8.6 TH/MM3 (4.0-11.0)
[2017-07-05 06:30] LABS: BICARBONATE 24.8 MEQ/L (21.0-32.0); CALCIUM 8.7 MG/DL (8.5-10.1); CREATININE 1.14 MG/DL (0.60-1.30)
[2017-07-05] MEDS ORDERED: ATOR40TA16 PO (08:58)
[2017-07-05] MEDS ORDERED: ASPI81 PO (08:58)
[2017-07-05] MEDS ORDERED: RAMI2.5C PO (08:58)
[2017-07-05] MEDS ORDERED: CARV3.125 PO (08:58)
[2017-07-05] MEDS ORDERED: PRAS10TA PO (08:58)
--- NOTE | 2017-07-05 08:58 | HHI.DS ---
Discharge Summary Admission Date July 03, 2017 at 22:41 Discharge Date: July 05, 2017 Admitting Diagnosis ACS/NSTEMI (1) Hyperlipidemia ICD Code: E78.5 - Hyperlipidemia, unspecified (2) CAD (coronary artery disease) ICD Code: I25.10 - Atherosclerotic heart disease of [place] coronary artery without angina pectoris Procedures cardiac cath Brief History - From Admission 56-year-old male with a past medical history significant for hyperlipidemia and psoriatic arthritis presents to the emergency department for evaluation of chest pain/pressure. The patient reports that starting at 8 PM last night he had a chest tightness/pressure with accompanying shortness of breath that lasted approximately 45 minutes. He endorses nausea without emesis. He states the pain was relieved on its own on his arrival to the emergency department. He denies any abdominal pain or diarrhea. No fevers/chills. No fatigue or weakness. No lateralizing signs/symptoms. CBC/BMP: 07/05/17 0456 07/05/17 0456 Significant Findings Laboratory Tests Test 07/03/17 21:35 07/04/17 03:12 07/04/17 16:59 07/05/17 04:56 Red Blood Count 4.33 MIL/MM3 (4.50-5.90) 4.16 MIL/MM3 (4.50-5.90) 4.24 MIL/MM3 (4.50-5.90) Hematocrit 38.7 % (39.0-51.0) 37.2 % (39.0-51.0) 38.2 % (39.0-51.0) Monocytes (%) (Auto) 9.3 % (0.0-8.0) Eosinophils (%) (Auto) 4.2 % (0.0-4.0) Prothrombin Time 9.7 SEC (9.8-11.6) Blood Urea Nitrogen 22 MG/DL (7-18) 19 MG/DL (7-18) Creatinine 1.34 MG/DL (0.60-1.30) Estimat Glomerular Filtration Rate 55 ML/MIN (>89) 68 ML/MIN (>89) 66 ML/MIN (>89) Troponin I 0.63 NG/ML (0.02-0.05) 0.59 NG/ML (0.02-0.05) 0.47 NG/ML (0.02-0.05) Chloride Level 109 MEQ/L (98-107) LDL Cholesterol 103 MG/DL (0-99) Imaging Last Impressions Chest X-Ray 07/03/17 [id number] Signed Impressions: Service Date/Time: Monday, July 03, 2017 21:46 - CONCLUSION: No acute disease. Kulwant Silvestre MD PE at Discharge GENERAL: male sitting up in bed CARDIOVASCULAR: Regular rate and rhythm without murmurs, gallops, or rubs. RESPIRATORY: Clear to auscultation. Breath sounds equal bilaterally. No wheezes , rales, or rhonchi. GASTROINTESTINAL: Abdomen soft, non-tender, nondistended. No hepato-splenomegaly , or palpable masses. No guarding. MUSCULOSKELETAL: Extremities without clubbing, cyanosis, or edema. No joint tenderness, effusion, or edema noted. No calf tenderness. NEUROLOGICAL: Awake and alert. Cranial nerves II through XII intact. Motor and sensory grossly within normal limits. Normal speech. Pt update on day of discharge No chest pain overnight no shortness of breath or palpitations. Feels much better he wants to go home. Cleared by cardiology. Hospital Course 1. CAD EKG showed sinus bradycardia with T-wave inversion and possible ST elevation in the inferior leads, personally reviewed Cardiology consulted, appreciate recommendations serial troponins/EKGs Therapeutic Lovenox per cardiology Coreg Aspirin CAD - pS/P cardiac cath by Dr Min cardio. bms prox and mid lad, assymptomatic, dc on aspirin 162 mg qd, effient 10 mg qd, lipitor 40 mg hs, coreg 3.125 mg bid, altace 2.5 mg qd; will need to find rn documentation in network with [facility] 2. Hyperlipidemia Continue home statin 3. Psoriatic arthritis On Humira 4. HPI Creatinine 1.34, baseline unknown IV fluid hydration Monitor renal function Patient improved significantly. Cleared by cardiology for discharge. Patient to follow-up with cardiology in network [facility]. Discharged home in stable condition to follow-up with PCP and consultants as outpatient. Pt Condition on Discharge: Stable Discharge Disposition: Discharge Home Discharge Time: > 30 minutes Discharge Instructions DIET: Follow Instructions for: Heart Healthy Diet Activities you can perform: Regular-No Restrictions Follow up Referrals: Cardiology - 1 Week with Dung Braun MD PCP Follow-up - 2-3 Days New Medications: Aspirin (Tgt Aspirin) 81 Mg Chw 162 MG PO DAILY for Blood Clot Prevention, #30 EA Atorvastatin (Atorvastatin) 40 Mg Tab 40 MG PO HS for Cholesterol Management, #60 TAB Carvedilol (Coreg) 3.125 Mg Tab 3.125 MG PO Q12HR for Blood Pressure Management, #120 TAB Prasugrel (Effient) 10 Mg Tab 10 MG PO DAILY for Blood Clot Prevention, #60 TAB Ramipril (Ramipril) 2.5 Mg Cap 2.5 MG PO DAILY for Blood Pressure Management, #60 CAP Continued Medications: Adalimumab 2-Pack Inj (Humira 2-Pack Inj) 10 Mg/0.2 Ml Syr 10 MG SQ Q14D, #1 KIT 0 Refills Discontinued Medications: Aspirin (Aspirin) 81 Mg Chew 81 MG CHEW DAILY, TAB 0 Refills Atorvastatin (Atorvastatin) 20 Mg Tab 20 MG PO HS for Cholesterol Management, #30 TAB 0 Refills Hyun Archer MD July 05, 2017 08:58
[2017-07-05] MEDS ORDERED: RAMIPRIL 2.5 MG CAP PO SCH (09:00)
[2017-07-05] MEDS ORDERED: PRASUGREL 10 MG TAB PO SCH (09:00)
[2017-07-05] MEDS ORDERED: ACETAMINOPHEN 325 MG TAB PO PRN (09:00)
[2017-07-05] MEDS ORDERED: ASPIRIN 81 MG CHEW TAB PO SCH (09:00)
[2017-07-05] MEDS: CARVEDILOL 3.125 MG TAB PO SCH (09:18)
[2017-07-05] MEDS: SODIUM CHLORIDE 0.9% FLUSH 10 ML FLUSH IV FLUSH SCH (09:19)
--- NOTE | 2017-07-05 10:45 | PD.CARD.PN ---
Subjective Subjective Remarks assymptomatic, feels much better Objective Medications Current Medications Medications (Trade) Dose Ordered Sig/Priscilla Route Start Time Stop Time Status Last Admin (Coreg) 3.125 mg Q12HR PO 07/04/17 09:00 07/05/17 09:18 (Morphine Inj) 4 mg Q3H PRN IV PUSH 07/04/17 00:00 07/04/17 13:38 Sodium Chloride 1,000 ml @ 100 mls/hr Q10H IV 07/04/17 00:15 (Lipitor) 40 mg HS PO 07/04/17 21:00 07/04/17 21:32 (NS Flush) 2 ml UNSCH PRN IV FLUSH 07/04/17 10:30 (NS Flush) 2 ml BID IV FLUSH 07/04/17 21:00 07/05/17 09:19 (Aspirin Chew) 162 mg DAILY PO 07/05/17 09:00 07/05/17 09:18 (Effient) 10 mg DAILY PO 07/05/17 09:00 07/05/17 09:18 Tirofiban/Sodium Chloride 250 ml @ 15.136 mls/ hr [id number] IV 07/04/17 11:45 07/05/17 11:44 07/05/17 00:05 (Altace) 2.5 mg DAILY PO 07/05/17 09:00 07/05/17 09:18 (Tylenol) 650 mg Q4H PRN PO 07/05/17 09:00 07/05/17 09:17 Vital Signs / I&O Vital Signs Date Time Temp Pulse Resp B/P (MAP) Pulse Ox O2 Delivery O2 Flow Rate FiO2 07/05/17 08:00 98.7 62 16 145/74 (97) 97 07/05/17 06:14 56 07/05/17 04:43 54 07/05/17 04:43 56 16 116/75 (89) 96 07/05/17 03:00 52 07/05/17 02:00 58 07/05/17 01:00 54 07/05/17 00:00 62 16 114/70 (85) 96 07/05/17 00:00 62 07/05/17 00:00 58 07/04/17 23:00 60 07/04/17 22:00 56 07/04/17 21:00 62 07/04/17 20:00 63 07/04/17 20:00 98.2 67 16 132/75 (94) 99 07/04/17 20:00 64 07/04/17 19:00 58 07/04/17 18:00 66 07/04/17 17:00 60 07/04/17 16:00 64 07/04/17 15:48 97.8 59 16 124/73 (90) 98 07/04/17 15:00 61 07/04/17 14:15 65 16 146/81 (102) 98 I/O 07/04/17 07/04/17 07/04/17 07/05/17 07/05/17 07/05/17 07:00 15:00 23:00 07:00 15:00 23:00 Intake Total 240 ml 240 ml Output Total 450 ml Balance 240 ml -210 ml Intake Oral 240 ml 240 ml Output Urine Total 450 ml Laboratory GENERAL: SKIN: Warm and dry. HEAD: Normocephalic. EYES: No scleral icterus. No injection or drainage. NECK: Supple, trachea midline. No JVD or lymphadenopathy. CARDIOVASCULAR: Regular rate and rhythm without murmurs, gallops, or rubs. RESPIRATORY: Breath sounds equal bilaterally. No accessory muscle use. GASTROINTESTINAL: Abdomen soft, non-tender, nondistended. MUSCULOSKELETAL: No cyanosis, or edema. BACK: Nontender without obvious deformity. No CVA tenderness. Laboratory Tests Test 07/04/17 16:59 07/05/17 04:56 Total Creatine Kinase 101 U/L 93 U/L Troponin I 0.47 NG/ML White Blood Count 8.6 TH/MM3 Red Blood Count 4.24 MIL/MM3 Hemoglobin 13.0 GM/DL Hematocrit 38.2 % Mean Corpuscular Volume 90.1 FL Mean Corpuscular Hemoglobin 30.7 PG Mean Corpuscular Hemoglobin Concent 34.1 % Red Cell Distribution Width 14.3 % Platelet Count 303 TH/MM3 Mean Platelet Volume 8.2 FL Neutrophils (%) (Auto) 62.2 % Lymphocytes (%) (Auto) 27.0 % Monocytes (%) (Auto) 7.5 % Eosinophils (%) (Auto) 2.6 % Basophils (%) (Auto) 0.7 % Neutrophils # (Auto) 5.3 TH/MM3 Lymphocytes # (Auto) 2.3 TH/MM3 Monocytes # (Auto) 0.6 TH/MM3 Eosinophils # (Auto) 0.2 TH/MM3 Basophils # (Auto) 0.1 TH/MM3 CBC Comment DIFF FINAL Differential Comment Blood Urea Nitrogen 15 MG/DL Creatinine 1.14 MG/DL Random Glucose 82 MG/DL Calcium Level 8.7 MG/DL Sodium Level 141 MEQ/L Potassium Level 3.7 MEQ/L Chloride Level 107 MEQ/L Carbon Dioxide Level 24.8 MEQ/L Anion Gap 9 MEQ/L Estimat Glomerular Filtration Rate 66 ML/MIN Assessment and Plan Problem List: (1) CAD (coronary artery disease) ICD Codes: I25.10 - Atherosclerotic heart disease of [place] coronary artery without angina pectoris (2) NSTEMI (non-ST elevated myocardial infarction) ICD Codes: I21.4 - Non-ST elevation (NSTEMI) myocardial infarction Status: Acute Assessment and Plan 1.) CAD - post op day #1 bms prox and mid lad, assymptomatic, dc on aspirin 162 mg qd, effient 10 mg qd, lipitor 40 mg hs, coreg 3.125 mg bid, altace 2.5 mg qd ; will need to find rd lab technician in network with [facility] as i am not in network; medications and f/u d/w patient and in arabic and uzbek and d/w nursing staff Dung Braun MD July 05, 2017 10:45
--- NOTE | 2017-07-05 21:18 | EKG ---
Date Performed: 07/05/2017 Time Performed: 05:42:38 PTAGE: 56 years EKG: Sinus bradycardia Prolonged QT interval Septal and lateral ST-T changes are nonspecific Sin ce the previous tracing, no significant change noted Borderline ECG PREVIOUS TRACING : 07/04/2017 03.50 DOCTOR: Iban Crowley Interpretating Date/Time 07/05/2017 16:54:52
== END 2017-07-05 13:19 | disposition home or self-care (01) | DRG 249 ==
LOC: NEPC 20:48 → NEDA 22:41 → NEDH 07-04 03:08 → HCIS 07-04 14:14
PROVIDERS: ADMIT Hospitalist; ATTEND Hospitalist
PROC: 02703ZZ Dilation of Coronary Artery, One Artery, Percutaneous Approach (ICD-10-PCS; 2017-07-04)
PROC: 4A023N7 Measurement of Cardiac Sampling and Pressure, Left Heart, Percutaneous Approach (ICD-10-PCS; 2017-07-04)
PROC: B2151ZZ Fluoroscopy of Left Heart using Low Osmolar Contrast (ICD-10-PCS; 2017-07-04)
PROC: B2111ZZ Fluoroscopy of Multiple Coronary Arteries using Low Osmolar Contrast (ICD-10-PCS; 2017-07-04)
PROC: 02713EZ Dilation of Coronary Artery, Two Arteries with Two Intraluminal Devices, Percutaneous Approach (ICD-10-PCS; principal; 2017-07-04 08:45)
DX: I21.4 Non-ST elevation (NSTEMI) myocardial infarction (principal); L40.50 Arthropathic psoriasis, unspecified; E78.5 Hyperlipidemia, unspecified; I25.10 Atherosclerotic heart disease of native coronary artery without angina pectoris; M19.90 Unspecified osteoarthritis, unspecified site; J45.909 Unspecified asthma, uncomplicated; E86.0 Dehydration; Z82.49 Family history of ischemic heart disease and other diseases of the circulatory system; Z87.891 Personal history of nicotine dependence; Z79.82 Long term (current) use of aspirin
CPT/HCPCS: 71045; 80048; 80053; 80061; 82550; 82552; 83735; 83880; 84484; 85002; 85025; 85610; 85730; 92928; 93005; 93458; 99152; 99153; C1725; C1769; C1876; C1887; C1893; J1644; J1650; J2250; J2270; J3010; J3246; Q9967